=== PATIENT | male | born 1965 | race Caucasian/White ===

== ENCOUNTER 2020-07-01 13:46 | Emergency (ER) | payer OTHER ==
[~2020-07-01] VITALS: Ht 172.7 cm; Wt 101.6 kg
[~2020-07-01 13:46] MED LIST: ASPI-630 PO; MULT-208 PO; SIMV20TA PO
--- NOTE | 2020-07-01 14:19 | PHYS DOC ---
Past History Past Medical History: Other Additional Past Medical Histor: hyperlipidemia, back pain Additional Past Surgical Histo: eye surgery Alcohol Use: Occasionally General Adult EDM: Chief Complaint: BACK PAIN OR INJURY HPI: HPI: Patient is a 55-year-old male coming in with right flank pain and back pain starting 3 days ago, states he was working in his yard had a small amount pain. Typically has low back pain that is midline and in the lumbar region. Pain is lower thoracic and getting worse. Has been taking NSAIDs with some improvement. Denies any falls or trauma. States the pain is usually dull but occasionally sharp with movement or trying to sleep. His pain is improved with standing upright. Denies any nausea, vomiting, fevers, diarrhea, constipation. Has a history of a "kidney infection" as a child but has not had any kidney problems since. No personal family history of renal stones, but family history of cholelithiasis Review of Systems: Review of Systems: Constitutional: Denies fever or chills Eyes: Denies change in visual acuity HENT: Denies nasal congestion or sore throat Respiratory: Denies cough or shortness of breath Cardiovascular: Denies chest pain or edema GI: Denies abdominal pain, nausea, vomiting, bloody stools or diarrhea : Denies dysuria Musculoskeletal: Right thoracic back pain, right flank pain Integument: Denies rash Neurologic: Denies headache, focal weakness or sensory changes Endocrine: Denies polyuria or polydipsia Lymphatic: Denies swollen glands Psychiatric: Denies depression or anxiety Heart Score: Risk Factors: Risk Factors: DM, Current or recent (<one month) smoker, HTN, HLP, family history of CAD, obesity. Risk Scores: Score 0 - 3: 2.5% MACE over next 6 weeks - Discharge Home Score 4 - 6: 20.3% MACE over next 6 weeks - Admit for Clinical Observation Score 7 - 10: 72.7% MACE over next 6 weeks - Early Invasive Strategies Allergies: Allergies: Allergies Uncoded Allergies Type Severity Reaction Last Updated Verified BANANAS Allergy Severe Hives 06/04/15 Physical Exam: PE: Constitutional: Well developed, well nourished, no acute distress, non-toxic appearance. [] HENT: Normocephalic, atraumatic, bilateral external ears normal, oropharynx moist, no oral exudates, nose normal. [] Eyes: PERRLA, EOMI, conjunctiva normal, no discharge. [] Neck: Normal range of motion, no tenderness, supple, no stridor. [] Cardiovascular:Heart rate regular rhythm, no murmur [] Lungs & Thorax: Bilateral breath sounds clear to auscultation [] Abdomen: Bowel sounds normal, soft, no tenderness, no masses, no pulsatile masses. [] Skin: Warm, dry, no erythema, no rash. [] Back: No tenderness over spine, right CVA tenderness Extremities: No tenderness, no cyanosis, no clubbing, ROM intact, no edema. [] Neurologic: Alert and oriented X 3, normal motor function, normal sensory function, no focal deficits noted. [] Psychologic: Affect normal, judgement normal, mood normal. [] Current Patient Data: Vital Signs: Vital Signs Date Time Temp Pulse Resp B/P (MAP) Pulse Ox O2 Delivery O2 Flow Rate FiO2 07/01/20 13:50 98.7 90 18 114/76 (89) 98 Room Air EKG: EKG: [] Radiology/Procedures: Radiology/Procedures: Examination: CT ABDOMEN PELVIS WO CONTRAST History: Reason: right flank pain / Spl. Instructions: / History: Comparison/Correlation: None Findings: Axial images of the abdomen and pelvis were obtained without contrast. Sagittal and coronal reformatted images were provided. Visualized lung bases are clear. Liver, spleen, pancreas, and adrenal glands are normal. Gallbladder fossa is unremarkable. No radiopaque collecting system calculi. No hydronephrosis. No hydroureter. Urinary bladder is decompressed which presumably accounts for the circumferential wall thickening visualized. Diverticulosis of the colon is present. No inflammatory findings. Appendix is normal. Nonenlarged lymph nodes involving the nonenlarged lymph nodes are present within the right abdomen. No ascites or pelvic free fluid. Moderate L3-4 and L4-5 disc space narrowing. Concentric disc bulge noted at these levels with mild to moderate spinal canal stenosis. Significant neural foraminal narrowing is present involving the right L4-5 neural foramen. Impression: Negative diagnosis. No radiopaque liquid consistency liquids. No obstruction. Appendix is normal. Nonenlarged lymph nodes are present involving the right mesentery as well as otherwise. Correlate for possible mesenteritis. No associated findings. Degenerative changes of the lumbar spine. PQRS Compliance Statement: One or more of the following individualized dose reduction techniques were utilized for this examination: 1. Automated exposure control 2. Adjustment of the mA and/or kV according to patient size 3. Use of iterative reconstruction technique [] Course & Med Decision Making: Course & Med Decision Making Pertinent Labs and Imaging studies reviewed. (See chart for details) [] Jess Disclaimer: Jess Disclaimer: This electronic medical record was generated, in whole or in part, using a voice recognition dictation system. Departure Departure: Impression: Primary Impression: Right-sided back pain Disposition: HOME/RESIDENCE PRIOR TO ADM Admitting Physician: Edgar Landaverde Condition: STABLE Referrals: EDGAR LANDAVERDE MD (PCP) Patient Instructions: Back Exercises, Generic, SportsMed Scripts Meloxicam (MELOXICAM) 7.5 Mg Tablet 1 TAB PO BID PRN for PAIN for 10 Days, #20 TAB 0 Refills Prov: URBANO SERRANO MD 07/01/20 Cyclobenzaprine Hcl (CYCLOBENZAPRINE HCL) 5 Mg Tablet 1 TAB PO BID PRN for PAIN for 7 Days, #14 TAB Prov: URBANO SERRANO MD 07/01/20 URBANO SERRANO MD Jul 01, 2020 14:19
[2020-07-01 14:47] LABS: BASO % 0 % (0-3); EOS % 0 % (0-3); HEMATOCRIT 42.4 % (39.0-53.0); HEMOGLOBIN 14.2 g/dL (13.0-17.5); LYMPH # 1.6 x10^3/uL (1.0-4.8); LYMPH % 22 % (24-48); MEAN CORPUSCULAR HEMOGLOBIN 29 pg (25-35); MEAN CORPUSCULAR HGB CONC 34 g/dL (31-37); MEAN CORPUSCULAR VOLUME 88 fL (79-100); MONO # 0.7 x10^3/uL (0.0-1.1); MONO % 9 % (0-9); NEUT % 68 % (31-73); PLATELET COUNT 259 x10^3/uL (140-400); RED BLOOD COUNT 4.82 x10^6/uL (4.30-5.70); RED CELL DISTRIBUTION WIDTH 13.6 % (11.5-14.5); WHITE BLOOD COUNT 7.3 x10^3/uL (4.0-11.0)
--- NOTE | 2020-07-01 15:00 | RAD ---
Examination: CT ABDOMEN PELVIS WO CONTRAST History: Reason: right flank pain / Spl. Instructions: / History: Comparison/Correlation: None Findings: Axial images of the abdomen and pelvis were obtained without contrast. Sagittal and coronal reformatted images were provided. Visualized lung bases are clear. Liver, spleen, pancreas, and adrenal glands are normal. Gallbladder fossa is unremarkable. No radiopaque collecting system calculi. No hydronephrosis. No hydroureter. Urinary bladder is decompressed which presumably accounts for the circumferential wall thickening visualized. Diverticulosis of the colon is present. No inflammatory findings. Appendix is normal. Nonenlarged lymph nodes involving the nonenlarged lymph nodes are present within the right abdomen. No ascites or pelvic free fluid. Moderate L3-4 and L4-5 disc space narrowing. Concentric disc bulge noted at these levels with mild to moderate spinal canal stenosis. Significant neural foraminal narrowing is present involving the right L4-5 neural foramen. Impression: Negative diagnosis. No radiopaque liquid consistency liquids. No obstruction. Appendix is normal. Nonenlarged lymph nodes are present involving the right mesentery as well as otherwise. Correlate for possible mesenteritis. No associated findings. Degenerative changes of the lumbar spine. PQRS Compliance Statement: One or more of the following individualized dose reduction techniques were utilized for this examination: 1. Automated exposure control 2. Adjustment of the mA and/or kV according to patient size 3. Use of iterative reconstruction technique Electronically signed by: Thomas Kendrick MD (07/01/2020 2:57 PM) [id number]
[2020-07-01 15:10] LABS: CALCIUM 9.3 mg/dL (8.5-10.1); CREATININE 1.2 mg/dL (0.7-1.3); GFR 62.4
[2020-07-01 15:10] LABS: BILIRUBIN,URINE NEG (NEG); CLARITY,URINE CLEAR; COLOR,URINE YELLOW; GLUCOSE,URINE NEG (NEG)
[2020-07-01 15:11] LABS: BACTERIA,URINE 0 /HPF (0-FEW); NITRITE,URINE NEG (NEG); RBC,URINE 0 /HPF (0-2); SQUAMOUS EPITHELIAL CELL,UR OCC /LPF; UROBILINOGEN,URINE 0.2 mg/dL (0.2 mg/dL); WBC,URINE 0 /HPF (0-4)
[2020-07-01 15:16] LABS: ALBUMIN 4.1 g/dL (3.4-5.0); ALBUMIN/GLOBULIN RATIO 1.2 (1.0-1.7); TOTAL BILIRUBIN 0.3 mg/dL (0.2-1.0); TOTAL PROTEIN 7.4 g/dL (6.4-8.2)
[2020-07-01] MEDS ORDERED: CYCL5TAB PO (15:42)
[2020-07-01] MEDS ORDERED: MELO7.5T29 PO (15:42)
[2020-07-01] MEDS ORDERED: KETOROLAC 30 MG/ML VIAL. IVP ONE (15:45)
[2020-07-01] MEDS ORDERED: KETOROLAC 15 MG/ML VIAL. ONE (15:45)
[2020-07-01] MEDS ORDERED: KETOROLAC 30 MG/ML VIAL. ONE (15:48)
[2020-07-01 15:55] VITALS: BP 140/81
== END 2020-07-01 16:00 | disposition home or self-care (01) ==
LOC: ER 13:46
DX: M54.5 Low back pain (principal); M54.6 Pain in thoracic spine; E78.5 Hyperlipidemia, unspecified; R10.9 Unspecified abdominal pain; Z91.018 Allergy to other foods
CPT/HCPCS: 36415; 74176; 80053; 81001; 85025; 99284

== ENCOUNTER → 2020-10-21 | Outpatient (CLI) | payer OTHER ==
[~2020-10-21] MED LIST changes: +CYCL5TAB PO; +MELO7.5T29 PO
--- NOTE | 2020-10-21 12:06 | RAD ---
AP and Lateral Views of the Chest 10/21/2020 9:51 AM Indication: Reason: COUGH X 1 MONTH / Spl. Instructions: / History: Comparison: None Findings: There is no focal consolidation or infiltrate identified. The cardiomediastinal silhouette is within normal limits. There is no evidence of pneumothorax or pleural effusion. No acute osseous a bnormalities are identified. Impression: No evidence of acute cardiopulmonary process. Electronically signed by: Nba Doan MD (10/21/2020 12:04 PM) [id number]
== END ==
LOC: DXRAD 09:45
PROVIDERS: ATTEND Family Medicine
DX: R05 Cough (principal)
CPT/HCPCS: 71046